=== PATIENT | female | born 1950 ===

== ENCOUNTER 2017-12-03 08:36 | Day surgery (SDC) | payer MEDICARE ==
[2017-12-03 09:31] VITALS: BMI 23.3
[2017-12-03] MEDS ORDERED: Propofol 10 mg/ml Inj (20 ML) ONE (10:10)
[2017-12-03 10:34] VITALS: TEMP 98.5
[2017-12-03 12:49] VITALS: O2SAT 100
[2017-12-03 12:51] VITALS: BP 127/78; PULSE 55; RESP 12
== END 2017-12-03 12:20 | disposition home or self-care (01) ==
LOC: C.ENDO 08:36
PROVIDERS: ATTEND Internal Medicine Gastroenterology
DX: Z12.11 Encounter for screening for malignant neoplasm of colon (principal); K64.0 First degree hemorrhoids
CPT/HCPCS: 45378; J2704; J7040